=== PATIENT | female | born 1975 | race Caucasian/White ===

== ENCOUNTER → 2016-12-10 | Outpatient (CLI) | payer OTHER ==
[~2016-12-10] MED LIST: BACTRIM DS TABL1 TA1 PO; CIPROFLOXACIN500 M1 PO; DIFLUCAN PO; DILAUDID2 MG PO; FLOMAX0.4 M1 PO; KEFLEX500 M1 PO; KEFLEX500 M2 PO; NO MEDICATIONS; VOLTAREN75 MG PO; ZOFRAN ODT4 MG PO
--- NOTE | ~2016-12-10 | CR7 ---
[facility] A Service of [facility] & [facility] / [facility] RADIOLOGY TEXT RESULTS PATIENT: EARNEST PAN LOCATION: [facility] : 75 UNIT #: [id number] AGE: [address]: Niraj Elizabeth MD SEX: F ORDER DR: [id number] [facility] [address] [place], [place] [address] [id number] O MR#: [id number] Acc #: [id number] NAME: EARNEST PAN. : 1975 SEX: F STUDY DATE/TIME: 12/10/2016 11:04 UNIT: [facility] ROOM: STUDY DESCRIPTION: CR Abdomen Single AP View Attending Physician: Niraj Elizabeth M.D. Referring Physician: Niraj Elizabeth M.D. Ordering Physician: Niraj Elizabeth M.D. Primary Care Physician: Niraj Damon D.O. MEDICAL IMAGING REPORT This report is preliminary unless electronic signature is present EXAM Abdomen HISTORY Kidney stone right side with previous lithotripsy. Evaluate for residual stones. COMPARISON CT scan from 10/04/2016 FINDINGS Supine view of the abdomen was obtained. The bowel gas pattern is normal. There are two possible calcifications superimposed upon the right kidney measuring about 2.0-3.0 mm each. No ureteral stones are suggested. The bowel gas pattern is normal and the bones are normal. IMPRESSION Two faint possible right renal stones are visible measuring 2.0-3.0 mm in diameter otherwise the study is normal. Dictated by... Alcon Mccullough M.D. THIS IS AN ELECTRONICALLY VERIFIED REPORT Alcon Mccullough M.D. at 12/10/2016 2:59 PM Nelson TD: 12/10/2016 14:47 JOB #: [id number] MEDICAL IMAGING REPORT COPY
== END | disposition home or self-care (01) ==
LOC: CRAD 10:42
DX: N20.0 Calculus of kidney (principal)
CPT/HCPCS: 74000